=== PATIENT | female | born 2000 | race Caucasian/White ===

== ENCOUNTER 2019-06-15 17:22 | Emergency (ER) | payer SELFPAY ==
[2019-06-15] MEDS ORDERED: 0.9 % SODIUM CHLORIDE 1,000 ML BAG IV ONE (17:58)
[2019-06-15 18:18] LABS: ABSOLUTE NEUTROPHIL COUNT 3.03; BASO % 0.5 % (0-6); EOS % 3.4 % (0-6); GRAN % 47.4 % (47-80); HEMATOCRIT 38.4 % (35.0-47.0); HEMOGLOBIN 11.7 gm/dl (11.6-16.0); MEAN CELL VOLUME 73.4 fl (81-97); MEAN CORPUSCULAR HEMOGLOBIN 22.4 pg (27-33); MEAN CORPUSCULAR HGB CONC 30.5 g/dl (32-36); MEAN PLATELET VOLUME 11.2 fl (7.4-10.4); MONO % 9.7 % (0-9); PLATELET COUNT 322 K/uL (130-400); RED BLOOD COUNT 5.23 M/uL (3.80-5.40); RED CELL DISTRIBUTION WIDTH 18.1 % (11.5-14.5); WHITE BLOOD COUNT W/O DIFF 6.4 K/uL (4.2-12.2)
[2019-06-15 18:27] LABS: BLOOD UREA NITROGEN 13 mg/dL (6-20); CREATININE 0.8 mg/dL (0.5-0.9); EST GLOMERULAR FILTRATION RATE > 60 mL/min
[2019-06-15 18:29] LABS: GLUCOSE,RANDOM 130 mg/dL (74-109)
[2019-06-15 19:13] LABS: URINE APPEARANCE CLEAR; URINE BILIRUBIN NEGATIVE (NEGATIVE); URINE BLOOD LARGE (NEGATIVE); URINE COLOR YELLOW; URINE GLUCOSE (UA) NEGATIVE (NEGATIVE); URINE KETONE NEGATIVE (NEGATIVE); URINE LEUKOCYTE ESTERASE SMALL (NEGATIVE); URINE NITRITE NEGATIVE (NEGATIVE); URINE PROTEIN NEGATIVE (NEGATIVE); URINE UROBILINOGEN 0.2 E.U./dL (0.20 - 1.00)
[2019-06-15 19:18] LABS: HCG,QUALITATIVE URINE NEGATIVE (NEGATIVE)
--- NOTE | 2019-06-15 19:19 | Emergency Department Record ---
History of Present Illness - General Chief Complaint: Passed out Stated Complaint: SYNCOPE Time Seen by Provider: 06/15/19 17:49 Source: Patient Mode of Arrival: Ambulatory Limitations: No limitations - History of Present Illness Initial Comments: pt states she thinks she got a heatstroke. she was out in the heat a lot with a sweatshirt and got overheated. she felt lightheaded and sat down and then passed out. she has no cp, no sob, she doesnt smoke, she has no leg pain. MD Complaint: Loss of consciousness Onset/Timin -: Hour(s) Prodromal Symptoms: Lightheaded -: Second(s) Witnessed: Yes - by bystander Injuries Sustained Associated with Event: None Current Symptoms: None Context: During exertion, Other Treatments Prior to Arrival: None - Tessa Coma Scale Eye Response: (4) Open spontaneously Motor Response: (6) Obeys commands Verbal Response: (5) Oriented [place] Total: 15 - Related Data Home Medications Medication Instructions Recorded Confirmed Last Taken No Home Med [NO HOME MEDS] 06/15/19 06/15/19 Unknown Allergies Allergy/AdvReac Type Severity Reaction Status Date / Time No Known Allergies Allergy PT UNSURE Verified 06/15/19 17:28 OF REACTION Travel Screening - Travel/Exposure Within Last 30 Days Have you traveled within the last 30 days?: No - Travel/Exposure Within Last Year Have you traveled outside the [place] in the last year?: No - Additonal Travel Details Have you been exposed to anyone with a communicable illness?: No - Travel Symptoms Symptom Screening: None Review of Systems Reviewed: No additional complaints except as noted below Constitutional: Reports: As per HPI. Denies: Chills, Fever, Malaise, Night sweats, Weakness, Weight change Eyes: Reports: As per HPI. Denies: Eye discharge, Eye pain, Photophobia, Vision change ENT: Reports: As per HPI. Denies: Congestion, Dental pain, Ear pain, Epistaxis, Hearing loss, Throat pain Respiratory: Reports: As per HPI. Denies: Cough, Dyspnea, Hemoptysis, Stridor, Wheezes Cardiovascular: Reports: As per HPI. Denies: Arrhythmia, Chest pain, Dyspnea on exertion, Edema, Murmurs, Orthopnea, Palpitations, Paroxysmal nocturnal dyspnea, Rheumatic Fever, Syncope Endocrine: Reports: As per HPI. Denies: Fatigue, Heat or cold intolerance, Polydipsia, Polyuria Gastrointestinal: Reports: As per HPI. Denies: Abdominal pain, Constipation, Diarrhea, Hematemesis, Hematochezia, Melena, Nausea, Vomiting Genitourinary: Reports: As per HPI. Denies: Abnormal menses, Discharge, Dyspareunia, Dysuria, Frequency, Hematuria, Incontinence, Retention, Urgency Musculoskeletal: Reports: As per HPI. Denies: Arthralgia, Back pain, Gout, Joint swelling, Myalgia, Neck pain Skin: Reports: As per HPI. Denies: Bruising, Change in color, Change in hair/nails, Lesions, Pruritus, Rash Neurological: Reports: As per HPI. Denies: Abnormal gait, Confusion, Headache, Numbness, Paresthesias, Seizure, Tingling, Tremors, Vertigo, Weakness Psychiatric: Reports: As per HPI. Denies: Anxiety, Auditory hallucinations, Depression, Homicidal thoughts, Suicidal thoughts, Visual hallucinations Hematological/Lymphatic: Reports: As per HPI. Denies: Anemia, Blood Clots, Easy bleeding, Easy bruising, Swollen glands Past Medical History - SOCIAL HISTORY Smoking Status: Never smoker Alcohol Use: Occasional Drug Use: Occasional Drug Use Detail:: Marijuana - RESPIRATORY Hx Respiratory Disorders: No - CARDIOVASCULAR Hx Cardio Disorders: No - NEURO Hx Neuro Disorders: No - GI Hx GI Disorders: No - Hx Genitourinary Disorders: No - ENDOCRINE Hx Endocrine Disorders: No - MUSCULOSKELETAL Hx Musculoskeletal Disorders: No - PSYCH Hx Psych Problems: No - HEMATOLOGY/ONCOLOGY Hx Hematology/Oncology Disorders: No Family Medical History Any Significant Family History?: Yes Hx Diabetes: Father, Mother Physical Exam - General General Appearance: Alert, Oriented x3, Cooperative, Mild distress - Head Head exam: Normal inspection - Eye Eye exam: Normal appearance, PERRL, EOMI Pupils: Normal accommodation - ENT ENT exam: Normal exam, Mucous membranes dry, Normal external ear exam, Normal orophraynx Ear exam: Normal external inspection. negative: External canal tenderness Nasal Exam: Normal inspection. negative: Discharge, Sinus tenderness Mouth exam: Normal external inspection, Tongue normal Teeth exam: Normal inspection. negative: Dental caries Throat exam: Normal inspection. negative: Tonsillar erythema, Tonsillar exudate - Neck Neck exam: Normal inspection, Full ROM. negative: Tenderness - Respiratory Respiratory exam: Normal lung sounds bilaterally. negative: Respiratory distress - Cardiovascular Cardiovascular Exam: Regular rate, Normal rhythm, Normal heart sounds - GI/Abdominal GI/Abdominal exam: Soft, Normal bowel sounds. negative: Tenderness - Rectal Rectal exam: Deferred - exam: Deferred - Extremities Extremities exam: Normal inspection, Full ROM, Normal capillary refill. negative: Tenderness - Back Back exam: Reports: Normal inspection, Full ROM. Denies: Muscle spasm, Rash noted, Tenderness - Neurological Neurological exam: Alert, CN II-XII intact, Normal gait, Oriented X3 - Psychiatric Psychiatric exam: Normal affect, Normal mood - Skin Skin exam: Dry, Intact, Normal color, Warm Course Vital Signs 06/15/19 06/15/19 17:29 19:02 Temperature 99.6 F Pulse Rate 97 H Pulse Rate [ 88 Pulse Ox Probe] Respiratory 18 20 Rate Blood Pressure 91/57 Blood Pressure 106/66 [Left Arm] Pulse Ox 97 97 - Reevaluation(s) Reevaluation #1: 06/15/19 19:30 pt feels better after fluid rehydration Medical Decision Making - Lab Data Result diagrams: 06/15/19 15:00 06/15/19 15:00 Lab Results 06/15/19 06/15/19 06/15/19 Range/Units 15:00 15:00 15:00 WBC 6.4 (4.2-12.2) K/uL RBC 5.23 (3.80-5.40) M/uL Hgb 11.7 (11.6-16.0) gm/dl Hct 38.4 (35.0-47.0) % MCV 73.4 L (81-97) fl MCH 22.4 L (27-33) pg MCHC 30.5 L (32-36) g/dl RDW 18.1 H (11.5-14.5) % Plt Count 322 (130-400) K/uL MPV 11.2 H (7.4-10.4) fl Gran % 47.4 (47-80) % Lymphocytes % 39.0 (16-45) % Monocytes % 9.7 H (0-9) % Eosinophils % 3.4 (0-6) % Basophils % 0.5 (0-6) % Absolute Neutrophils 3.03 D-Dimer 0.56 (0-0.59) mg/L FEU Sodium 143 (136-145) mmol/L Potassium 3.7 (3.4-4.5) mmol/L Chloride 107 (98-107) mmol/L Carbon Dioxide 23.0 (22-29) mmol/L Anion Gap 13.0 (7-16) BUN 13 (6-20) mg/dL Creatinine 0.8 (0.5-0.9) mg/dL Estimated GFR > 60 mL/min Random Glucose 130 H (74-109) mg/dL Calcium 9.5 (8.6-10.0) mg/dL Disposition Disposition: Discharge Clinical Impression: Syncope Qualifiers: Syncope type: heat syncope Encounter type: initial encounter Qualified Code(s): T67.1XXA - Heat syncope, initial encounter Disposition: Home, Self-Care Condition: (1) Good Instructions: Heat Exhaustion (ED), Syncope (ED) Additional Instructions: follow up with family doctor. return sooner if worse. push fluids. rest Forms: Patient Portal Access Quality - Quality Measures Quality Measures: N/A - Blood Pressure Screening Does Patient Have Any of the Following: No Blood Pressure Classification: Normal BP Reading Systolic Measurement: 91 Diastolic Measurement: 57 Screening for High Blood Pressure: < Normal BP, F/U Not Required > [G8783]
[2019-06-15 19:24] LABS: URINE BACTERIA 2+; URINE MUCUS MODERATE; URINE RBC 0 - 2 (NONE SEEN)
== END 2019-06-15 19:40 | disposition home or self-care (01) ==
LOC: ER 17:22
DX: T67.1XXA Heat syncope, initial encounter (principal); R42 Dizziness and giddiness; X30.XXXA Exposure to excessive natural heat, initial encounter; Y93.01 Activity, walking, marching and hiking; Y92.480 Sidewalk as the place of occurrence of the external cause
CPT/HCPCS: 80048; 81001; 81025; 85025; 85379; 93005; 93010; 96360; 96361; 99284; J7030

== ENCOUNTER 2019-08-27 06:37 | Emergency (ER) | payer SELFPAY ==
--- NOTE | 2019-08-27 07:06 | Emergency Department Record ---
History of Present Illness - General Chief Complaint: Abdominal Pain Stated Complaint: ABD PAIN, MIRENA Time Seen by Provider: 08/27/19 07:00 Source: Patient Mode of Arrival: Ambulatory Limitations: No limitations - History of Present Illness Initial Comments: The patient is here due to abdominal pain this AM while at work. The patient states around 2am she developed sharp pelvic pain with some spotting which at one point doubled her over in pain. She then states she took 2 800 mg Motrin pills and the pain did resolve in 2 hours. Presently the patient is pain free with no cramping, bleeding, or dysuria. She denies any recent hx of vaginal discharge or discomfort. The patient did have a Mirena IUD placed 8 months ago and thought she may have been having issues with the strings recently but has not been back to her [facility] to get it checked. MD Complaint: Abdominal pain Onset/Timin -: Hour(s) Location: Suprapubic Migration to: RLQ Severity: Moderate Severity scale (1-10): 5 Quality: Cramping Consistency: Constant, Intermittent, Getting worse Context: Recent surgery/procedure Associated Symptoms: Denies other symptoms - Related Data LMP (females 10-50): This week Allergies Allergy/AdvReac Type Severity Reaction Status Date / Time No Known Allergies Allergy PT UNSURE Verified 06/15/19 17:28 OF REACTION Travel Screening - Travel/Exposure Within Last 30 Days Have you traveled within the last 30 days?: No - Travel Symptoms Symptom Screening: None Review of Systems Constitutional: Denies: Chills, Fever Eyes: Denies: Eye discharge ENT: Denies: Congestion Respiratory: Denies: Cough, Dyspnea Past Medical History - SOCIAL HISTORY Smoking Status: Never smoker Alcohol Use: Rare Drug Use: Heavy Drug Use Detail:: Marijuana - RESPIRATORY Hx Respiratory Disorders: No - CARDIOVASCULAR Hx Cardio Disorders: No - NEURO Hx Neuro Disorders: No - GI Hx GI Disorders: No - Hx Genitourinary Disorders: No - ENDOCRINE Hx Endocrine Disorders: No - MUSCULOSKELETAL Hx Musculoskeletal Disorders: No - PSYCH Hx Psych Problems: No - HEMATOLOGY/ONCOLOGY Hx Hematology/Oncology Disorders: No Family Medical History Any Significant Family History?: Yes Hx Diabetes: Father, Mother Physical Exam - General General Appearance: Alert, Oriented x3, Cooperative, No acute distress - Head Head exam: Atraumatic, Normocephalic, Normal inspection - Eye Eye exam: Normal appearance, PERRL - Neck Neck exam: Normal inspection, Full ROM. negative: Tenderness - Respiratory Respiratory exam: Normal lung sounds bilaterally. negative: Respiratory distress - Cardiovascular Cardiovascular Exam: Regular rate, Normal rhythm, Normal heart sounds - GI/Abdominal GI/Abdominal exam: Soft, Normal bowel sounds. negative: Guarding, Organomegaly, Rebound, Rigid, Tenderness (There is no lower abdominal tenderness. The abdomen is very soft.) - Extremities Extremities exam: Normal inspection, Full ROM, Normal capillary refill. negative: Tenderness - Neurological Neurological exam: Alert. negative: Motor sensory deficit Course Vital Signs 08/27/19 06:44 Temperature 98.8 F Pulse Rate [ 88 Left] Respiratory 16 Rate Blood Pressure 123/93 [Left Arm] Pulse Ox 97 - Reevaluation(s) Reevaluation #1: The patient continues to do well and is without any pain, discomfort or vaginal issues. I did discuss the normal lab work and US and the need to F/U with her [facility] doctor to have the Mirena evaluated further. 08/27/19 09:01 Medical Decision Making - Data Complexity MDM Data: Labs Ordered and/or Reviewed, X-Ray Ordered and/or Reviewed - Lab Data Result diagrams: 08/27/19 07:25 08/27/19 07:25 - Radiology Data Radiology results: Report reviewed (US: Neg for any acute abnormality.) Disposition Disposition: Discharge Clinical Impression: Pelvic pain Disposition: Home, Self-Care Condition: (2) Stable Instructions: Pelvic Pain in Women (ED) Additional Instructions: Please continue your Motrin pills if needed for pain. Please see your [facility] specialist next week for further evaluation. Return to the ER for any return of the pain or any new issues. Forms: Patient Portal Access Time of Disposition: 09:03 Quality - Quality Measures Quality Measures: N/A - Blood Pressure Screening View Details: Yes Does Patient Have Any of the Following: No Blood Pressure Classification: Hypertensive Reading Systolic Measurement: 123 Diastolic Measurement: 93 Screening for High Blood Pressure: < First Hypertensive BP, F/U Documented > [G8950] First Hypertensive Follow-up Interventions: Referral to alternative/primary care provider.
[2019-08-27 07:37] LABS: ABSOLUTE NEUTROPHIL COUNT 3.86; BASO % 0.5 % (0-6); EOS % 3.5 % (0-6); HEMOGLOBIN 11.6 gm/dl (11.6-16.0); LYMPH % 39.6 % (16-45); MEAN CELL VOLUME 77.9 fl (81-97); MEAN CORPUSCULAR HEMOGLOBIN 23.8 pg (27-33); MEAN CORPUSCULAR HGB CONC 30.5 g/dl (32-36); MEAN PLATELET VOLUME 11.6 fl (7.4-10.4); MONO % 8.4 % (0-9); PLATELET COUNT 274 K/uL (130-400); RED BLOOD COUNT 4.88 M/uL (3.80-5.40); URINE APPEARANCE CLEAR; URINE BILIRUBIN NEGATIVE (NEGATIVE); URINE BLOOD SMALL (NEGATIVE); URINE COLOR YELLOW; URINE GLUCOSE (UA) NEGATIVE (NEGATIVE); URINE KETONE NEGATIVE (NEGATIVE); URINE LEUKOCYTE ESTERASE NEGATIVE (NEGATIVE); URINE NITRITE NEGATIVE (NEGATIVE); URINE PROTEIN NEGATIVE (NEGATIVE); URINE UROBILINOGEN 0.2 E.U./dL (0.20 - 1.00); WHITE BLOOD COUNT W/O DIFF 8.1 K/uL (4.2-12.2)
[2019-08-27 07:45] LABS: URINE EPITHELIAL CELLS 0 - 2 (FEW); URINE RBC 0 - 2 (NONE SEEN); URINE WBC 0 - 2 (0-2/hpf)
[2019-08-27 07:50] LABS: BLOOD UREA NITROGEN 12 mg/dL (6-20); CREATININE 0.7 mg/dL (0.5-0.9); EST GLOMERULAR FILTRATION RATE > 60 mL/min
[2019-08-27 07:52] LABS: GLUCOSE,RANDOM 93 mg/dL (74-109)
--- NOTE | 2019-08-27 08:54 | ULTRASOUND REPORT ---
EXAMINATION: Complete Transabdominal and transvaginal Ultrasound of the Pelvis EXAM DATE: 08/27/2019 8:45 AM TECHNIQUE: Transabdominal and transvaginal INDICATION: pelvic pain COMPARISON: None. Transabdominal Ultrasound of the Pelvis Findings: 1. Uterus Size: Retroverted uterus measures 6.3 x 4.2 x 7.1 cm in dimension (length x AP x width). 2. Endometrium: The endometrium images poorly transabdominally. The visualized endometrium measures 4 mm in thickness. IUD 3. Myometrium: The myometrium images poorly transabdominally. The myometrium is unremarkable. 4. Ovaries: The right ovary measures 3.4 x 1.9 x 1.5 cm in dimension. The left ovary measures 2.2 x 3.0 x 1.8 cm in dimension. 5. Bilateral Adnexa: No adnexal masses or abnormal cysts are demonstrated. 6. Other Findings: Small amount of free pelvic fluid Transvaginal Ultrasound of the Pelvis Findings: 1. Uterus Size: Retroverted 2. Endometrium: The endometrium measures 4 mm in thickness. The endometrium is normal. 3. Myometrium: Normal. 4. Ovaries: The right ovary measures 3.4 x 1.9 x 1.5 cm. The left ovary measures 2.2 x 3.0 x 1.8 cm. 5. Other Findings: Small amount of free pelvic fluid Doppler Imaging: Symmetrical color flow and Doppler signal Impression: 1. Retroverted uterus 2. IUD 3. Small amount of free pelvic fluid Dictated by: Joseph De Paz MD on 08/27/2019 8:46 AM. .
== END 2019-08-27 09:08 | disposition home or self-care (01) ==
LOC: ER 06:37
DX: R10.2 Pelvic and perineal pain (principal)
CPT/HCPCS: 76830; 76856; 80048; 81001; 84703; 85025; 99284